=== PATIENT | male | born 1940 | race Caucasian/White ===

== ENCOUNTER 2020-10-11 00:20 | Emergency (ER) | payer MEDICARE, BC ==
[2020-10-11] MEDS ORDERED: Lidocaine 2% with EPINEPHrine 1:100,000 20 ML MDV INJECT ONE (00:56)
--- NOTE | 2020-10-11 00:56 | EDM.PDOC ---
ED HPI GENERAL MEDICAL PROBLEM - General Chief Complaint: Lower Extremity Injury/Pain Stated Complaint: Toe Lacerations Time Seen by Provider: 10/11/20 00:50 Source of Information: Reports: Patient, [place] Records History Limitations: Reports: No Limitations - History of Present Illness INITIAL COMMENTS - FREE TEXT/NARRATIVE: Pt fell and cut right 2nd and 3rd toes Sent her from [place] for evaluation Tetanus UTD Onset: Today, Sudden Duration: Minutes: Location: Reports: Lower Extremity, Right Context: Reports: Trauma - Related Data Allergies Allergy/AdvReac Type Severity Reaction Status Date / Time atorvastatin Allergy Body Aches Verified 12/03/17 08:13 lovastatin Allergy Body Aches Verified 12/03/17 08:13 Home Meds: Home Meds Acetaminophen 650 mg PO ASDIRECTED PRN 11/19/17 [History] Cholecalciferol (Vitamin D3) [Vitamin D3] 400 units PO DAILY 11/19/17 [History] Digoxin [Digox] 250 mcg PO DAILY 11/19/17 [History] Doxylamine Succinate [Unisom] 25 mg PO BEDTIME 11/19/17 [History] Fluticasone Propionate [Flonase] 1 - 2 spray NASBOTH ASDIRECTED 11/19/17 [History] Leuprolide [Lupron Depot 4-Month] 1 injection IM .[id number] 11/19/17 [History] Polyvinyl Alcohol [Artificial Tears] 1 drop EYEBOTH ASDIRECTED 11/19/17 [History] Sennosides/Docusate Sodium [Senna-Docusate Sodium] 1 tab PO DAILY 11/19/17 [History] Verapamil [Calan SR] 240 mg PO DAILY 11/19/17 [History] hydroCHLOROthiazide [Hydrochlorothiazide] 25 mg PO DAILY 11/19/17 [History] Bicalutamide [Casodex] 1 tab PO DAILY 11/24/17 [History] Past Medical History HEENT History: Reports: Cataract, Sinusitis, Other (See Below) Other HEENT History: 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 Cardiovascular History: Reports: Hypertension Respiratory History: Reports: None Gastrointestinal History: Reports: None Genitourinary History: Reports: Urinary Incontinence Musculoskeletal History: Reports: Arthritis, Back Pain, Chronic Neurological History: Reports: Vertigo Psychiatric History: Reports: Depression Endocrine/Metabolic History: Reports: None Hematologic History: Reports: None Immunologic History: Reports: None Oncologic (Cancer) History: Reports: Prostate, Other (See Below) Other Oncologic History: LIPOMA RESECTION - MELANOMA Dermatologic History: Reports: Psoriasis - Infectious Disease History Infectious Disease History: Reports: Chicken Pox, Measles, Mumps, Pertussis (Whooping Cough) - Past Surgical History Head Surgeries/Procedures: Reports: None HEENT Surgical History: Reports: Cataract Surgery Cardiovascular Surgical History: Reports: None Respiratory Surgical History: Reports: None GI Surgical History: Reports: None Other Female Surgeries/Procedures: prostate shots Male Surgical History: Reports: Prostate Biopsy, Other (See Below) Musculoskeletal Surgical History: Reports: Other (See Below) Other Musculoskeletal Surgeries/Procedures:: back surg Social & Family History - Family History Family Medical History: No Pertinent Family History - Caffeine Use Caffeine Use: Reports: Coffee Other Caffeine Use: 2 cups daily Review of Systems - Review of Systems Review Of Systems: See Below Skin: Reports: Other (Laceration to right 2nd and 3rd toes) ED EXAM, GENERAL - Physical Exam Exam: See Below Skin Exam: Wound/Incision, Other (Right 2nd and 3rd otes with laceration on flexor surface at PIP joint Bleeding controlled Unable to suture due to severe flexion deformity) Course - Re-Assessments/Exams Free Text/Narrative Re-Assessment/Exam: 10/11/20 00:52 Wound cleaned and dressed with surgicell and gauze per nursing D/W pt need to keep wound clean due to flexion deformity Departure - Departure Time of Disposition: 01:00 Disposition: DC/Tfer to [facility] 03 Clinical Impression: Toe laceration Qualifiers: Toe: unspecified toe Damage to nail status: without damage Foreign body presence: without foreign body Laterality: right - Discharge Information *PRESCRIPTION DRUG MONITORING PROGRAM REVIEWED*: Not Applicable *COPY OF PRESCRIPTION DRUG MONITORING REPORT IN PATIENT MIKEL: Not Applicable Referrals: Helen Reed PA [Primary Care Provider] - Additional Instructions: Keep wounds clean Follow up in clinic
== END 2020-10-11 02:00 | disposition home or self-care (01) ==
LOC: LL.ED 00:20
DX: S91.114A Laceration without foreign body of right lesser toe(s) without damage to nail, initial encounter (principal); I10 Essential (primary) hypertension; Z79.899 Other long term (current) drug therapy; Z88.8 Allergy status to other drugs, medicaments and biological substances; W26.8XXA Contact with other sharp object(s), not elsewhere classified, initial encounter
CPT/HCPCS: 99282

== ENCOUNTER 2021-04-07 13:04 | Emergency (ER) | payer MEDICARE, BC ==
[2021-04-07] MEDS ORDERED: Bacitracin/Neomycin/Polymyxin B Oint 0.9 GM U/D Packet ONE (13:32)
--- NOTE | 2021-04-07 13:46 | EDM.PDOC ---
ED HPI GENERAL MEDICAL PROBLEM - General Chief Complaint: Lower Extremity Injury/Pain Stated Complaint: Foot Laceration Time Seen by Provider: 04/07/21 13:19 Source of Information: Reports: Patient History Limitations: Reports: No Limitations - History of Present Illness INITIAL COMMENTS - FREE TEXT/NARRATIVE: Patient has drop foot and usually wears a brace. He was not wearing a brace last night when the foot got caught as patient was walking and he fell. He is not sure if he hyperextended the toes or exactly what happened. Small bump on right side of head. No LOC. Noted bleeding at base of right toes where toes meet the forefoot. Denies other acute injuries. [facility] bandaged that foot. Family wanted patient seen in ER today. Similar injury happened earlier this year. Unable to suture the wounds at that time due to location of the skin injury and patient's foot/toe edema. Healed well over time with topical antibiotic ointment and dressing changes. - Related Data Allergies Allergy/AdvReac Type Severity Reaction Status Date / Time atorvastatin Allergy Body Aches Verified 12/03/17 08:13 lovastatin Allergy Body Aches Verified 12/03/17 08:13 Home Meds: Home Meds Acetaminophen 650 mg PO ASDIRECTED PRN 11/19/17 [History] Cholecalciferol (Vitamin D3) [Vitamin D3] 400 units PO DAILY 11/19/17 [History] Digoxin [Digox] 250 mcg PO DAILY 11/19/17 [History] Doxylamine Succinate [Unisom] 25 mg PO BEDTIME 11/19/17 [History] Fluticasone Propionate [Flonase] 1 - 2 spray NASBOTH ASDIRECTED 11/19/17 [History] Leuprolide [Lupron Depot 4-Month] 1 injection IM .[id number] 11/19/17 [History] Polyvinyl Alcohol [Artificial Tears] 1 drop EYEBOTH ASDIRECTED 11/19/17 [History] Sennosides/Docusate Sodium [Senna-Docusate Sodium] 1 tab PO DAILY 11/19/17 [History] Verapamil [Calan SR] 240 mg PO DAILY 11/19/17 [History] hydroCHLOROthiazide [Hydrochlorothiazide] 25 mg PO DAILY 11/19/17 [History] Bicalutamide [Casodex] 1 tab PO DAILY 06/18/18 [History] Past Medical History HEENT History: Reports: Cataract, Sinusitis, Other (See Below) Other HEENT History: 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 Cardiovascular History: Reports: Hypertension Respiratory History: Reports: None Gastrointestinal History: Reports: None Genitourinary History: Reports: Urinary Incontinence Musculoskeletal History: Reports: Arthritis, Back Pain, Chronic Neurological History: Reports: Vertigo Psychiatric History: Reports: Depression Endocrine/Metabolic History: Reports: None Hematologic History: Reports: None Immunologic History: Reports: None Oncologic (Cancer) History: Reports: Prostate, Other (See Below) Other Oncologic History: LIPOMA RESECTION - MELANOMA Dermatologic History: Reports: Psoriasis - Infectious Disease History Infectious Disease History: Reports: Chicken Pox, Measles, Mumps, Pertussis (Whooping Cough) - Past Surgical History Head Surgeries/Procedures: Reports: None HEENT Surgical History: Reports: Cataract Surgery Cardiovascular Surgical History: Reports: None Respiratory Surgical History: Reports: None GI Surgical History: Reports: None Other Female Surgeries/Procedures: prostate shots Male Surgical History: Reports: Prostate Biopsy, Other (See Below) Musculoskeletal Surgical History: Reports: Other (See Below) Other Musculoskeletal Surgeries/Procedures:: back surg Social & Family History - Family History Family Medical History: No Pertinent Family History - Caffeine Use Caffeine Use: Reports: Coffee Other Caffeine Use: 2 cups daily Review of Systems - Review of Systems Review Of Systems: Comprehensive ROS is negative, except as noted in HPI. (No acute changes reported other than presenting complaint of lacerations bases of right toes) ED EXAM, GENERAL - Physical Exam Exam: See Below Exam Limited By: No Limitations General Appearance: Alert, No Apparent Distress, Obese Eye Exam: Bilateral Eye: EOMI, PERRL Ears: Hearing Grossly Normal Nose: No: Nasal Deformity, Nasal Swelling, Nasal Drainage Throat/Mouth: Normal Lips, Normal Voice, No Airway Compromise Head: Other (small bruise right buddhist) Neck: Supple, Non-Tender Respiratory/Chest: No Respiratory Distress, Lungs Clear, No Accessory Muscle Use Cardiovascular: Regular Rate, Rhythm GI/Abdominal: Soft (Male) Exam: Penile Lesions Rectal (Males) Exam: Deferred Back Exam: No: Muscle Spasm Extremities: Other (Has discoloration of lower legs/feet consistent with peripheral vascular disease. Mild-moderate edema of feet and toes bilat. Very small lacerations noted ventral aspect of right toes at their bases. No active bleeding. No redness/inceased warmth. ) Neurological: Alert, Oriented, Normal Cognition, Other (equal tone/strength bilat. ) Psychiatric: Normal Affect, Normal Mood Skin Exam: Warm, Other (lacerations right toes as noted above. ) Course - Vital Signs Last Recorded V/S: Last Vital Signs Temp 36.1 C 04/07/21 13:26 Pulse 54 L 04/07/21 13:26 Resp 16 04/07/21 13:26 BP 134/62 04/07/21 13:26 Pulse Ox 94 L 04/07/21 13:26 - Orders/Labs/Meds Meds: Medications Discontinued Medications Generic Name Dose Route Start Last Admin Trade Name Freq PRN Reason Stop Dose Admin Neomycin/Polymyxin/Bacitracin Confirm 04/07/21 13:32 Bacitracin/Neomycin/Polymyxin B Oint 0.9 Gm U/D Packet Administered 04/07/21 13:33 Dose 1 each .ROUTE .STK-MED ONE - Re-Assessments/Exams Free Text/Narrative Re-Assessment/Exam: 04/07/21 18:43 Suturing not really an option given patient's anatomy/edema/location of small lacerations. He did well before with good wound care. Suspect patient's skin is more friable due to his edema/age and peripheral vascular disease. Wound cleansed by nursing staff and bacitracin placed around lacerations/dressing applied over area. Wound care reviewed with patient and [facility]. Both are familiar with recommended plan due to the previous episode. To avoid shoes while area healing. Regular wound checks by PCP during correction rounds to provide routine assessment of how well area is healing. Departure - Departure Time of Disposition: 13:46 Disposition: DC/Tfer to SNF 03 Condition: Good Clinical Impression: Toe laceration Qualifiers: Encounter type: initial encounter Toe: unspecified toe Damage to nail status: without damage Foreign body presence: without foreign body Laterality: right Qualified Code(s): S91.119A - Laceration without foreign body of unspecified toe without damage to nail, initial encounter - Discharge Information *PRESCRIPTION DRUG MONITORING PROGRAM REVIEWED*: Not Applicable *COPY OF PRESCRIPTION DRUG MONITORING REPORT IN PATIENT MIKEL: Not Applicable Referrals: Helen Reed PA [Primary Care Provider] - Forms: ED Department Discharge Additional Instructions: Dressing change daily until toes are well-healed. OK to soak in Normal Saline foot bath for 10-15min to help cleanse area before applying Bacitracin near base of toes/nonstick dressing/gauze/wrap. Have patient checked routinely on correction rounds by primary provider to verify that things are healing well. Follow up as needed if any signs of infection are noted. To avoid wearing shoes while area is healing in order to decrease chances of wound infection. Should be wearing a clean slipper/slipper and continue using his brace in order to decrease chance of another fall. Sepsis Event Note (ED) - Evaluation Sepsis Screening Result: No Definite Risk - Focused Exam Vital Signs: Vital Signs Temp Pulse Resp BP Pulse Ox 04/07/21 13:26 36.1 C 54 L 16 134/62 94 L
== END 2021-04-07 14:20 ==
LOC: LL.ED 13:04
DX: S91.119A Laceration without foreign body of unspecified toe without damage to nail, initial encounter (principal); I10 Essential (primary) hypertension; Z88.8 Allergy status to other drugs, medicaments and biological substances; Z79.899 Other long term (current) drug therapy; W01.0XXA Fall on same level from slipping, tripping and stumbling without subsequent striking against object, initial encounter; Y93.01 Activity, walking, marching and hiking
CPT/HCPCS: 99282; 99283

== ENCOUNTER 2021-05-01 15:42 | Emergency (ER) | payer MEDICARE, BC ==
--- NOTE | 2021-05-01 17:53 | EDM.PDOC ---
ED HPI GENERAL MEDICAL PROBLEM - General Chief Complaint: Lower Extremity Injury/Pain Stated Complaint: Right leg/groin pain Time Seen by Provider: 05/01/21 16:48 - History of Present Illness INITIAL COMMENTS - FREE TEXT/NARRATIVE: Silas is an 81 y/o male who is brought to the ER with increased leg swelling and pain. He has been on Keflex for a right lower leg cellulitis and had albs done this AM by his PCP at the [facility]. Apparently he was having increased pain that shoots into his groin and therefore he was sent to the ER. He did have an US ordered for tomorrow. No fever. - Related Data Allergies Allergy/AdvReac Type Severity Reaction Status Date / Time atorvastatin Allergy Body Aches Verified 12/03/17 08:13 lovastatin Allergy Body Aches Verified 12/03/17 08:13 Home Meds: Home Meds Acetaminophen 650 mg PO ASDIRECTED PRN 11/19/17 [History] Cholecalciferol (Vitamin D3) [Vitamin D3] 400 units PO DAILY 11/19/17 [History] Digoxin [Digox] 250 mcg PO DAILY 11/19/17 [History] Doxylamine Succinate [Unisom] 25 mg PO BEDTIME 11/19/17 [History] Fluticasone Propionate [Flonase] 1 - 2 spray NASBOTH ASDIRECTED 11/19/17 [History] Leuprolide [Lupron Depot 4-Month] 1 injection IM .[id number] 11/19/17 [History] Polyvinyl Alcohol [Artificial Tears] 1 drop EYEBOTH ASDIRECTED 11/19/17 [History] Sennosides/Docusate Sodium [Senna-Docusate Sodium] 1 tab PO DAILY 11/19/17 [History] Verapamil [Calan SR] 240 mg PO DAILY 11/19/17 [History] hydroCHLOROthiazide [Hydrochlorothiazide] 25 mg PO DAILY 11/19/17 [History] Bicalutamide [Casodex] 1 tab PO DAILY 11/24/17 [History] Sulfamethoxazole/Trimethoprim [Bactrim Ds Tablet] 1 each PO BID #20 tablet 05/01/21 [Rx] Past Medical History HEENT History: Reports: Cataract, Sinusitis, Other (See Below) Other HEENT History: 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 Cardiovascular History: Reports: Hypertension Respiratory History: Reports: None Gastrointestinal History: Reports: None Genitourinary History: Reports: Urinary Incontinence Musculoskeletal History: Reports: Arthritis, Back Pain, Chronic Neurological History: Reports: Vertigo Psychiatric History: Reports: Depression Endocrine/Metabolic History: Reports: None Hematologic History: Reports: None Immunologic History: Reports: None Oncologic (Cancer) History: Reports: Prostate, Other (See Below) Other Oncologic History: LIPOMA RESECTION - MELANOMA Dermatologic History: Reports: Psoriasis - Infectious Disease History Infectious Disease History: Reports: Chicken Pox, Measles, Mumps, Pertussis (Whooping Cough) - Past Surgical History Head Surgeries/Procedures: Reports: None HEENT Surgical History: Reports: Cataract Surgery Cardiovascular Surgical History: Reports: None Respiratory Surgical History: Reports: None GI Surgical History: Reports: None Other Female Surgeries/Procedures: prostate shots Male Surgical History: Reports: Prostate Biopsy, Other (See Below) Musculoskeletal Surgical History: Reports: Other (See Below) Other Musculoskeletal Surgeries/Procedures:: back surg Social & Family History - Family History Family Medical History: No Pertinent Family History - Caffeine Use Caffeine Use: Reports: Coffee Other Caffeine Use: 2 cups daily Review of Systems - Review of Systems Review Of Systems: See Below Constitutional: Reports: No Symptoms Eyes: Reports: No Symptoms Ears: Reports: No Symptoms Nose: Reports: No Symptoms Mouth/Throat: Reports: No Symptoms Respiratory: Reports: No Symptoms Cardiovascular: Reports: No Symptoms GI/Abdominal: Reports: No Symptoms Genitourinary: Reports: No Symptoms Musculoskeletal: Reports: Leg Pain (right leg pain, swelling) Skin: Reports: No Symptoms Neurological: Reports: No Symptoms Psychiatric: Reports: Agitation ED EXAM, GENERAL - Physical Exam Exam: See Below General Appearance: Alert, WD/WN, No Apparent Distress (Elderly male, sitting in a wheelchair. Pleasant and able to answer questions.) Ears: Normal External Exam, Normal Canal, Hearing Grossly Normal, Normal TMs Nose: Normal Inspection Throat/Mouth: Normal Inspection, Normal Lips, Normal Oropharynx, Normal Voice Head: Atraumatic, Normocephalic Respiratory/Chest: No Respiratory Distress, Lungs Clear, Chest Non-Tender Cardiovascular: Normal Peripheral Pulses, Regular Rate, Rhythm Peripheral Pulses: 3+: Posterior Tibial (R), Dorsalis Pedis (R) GI/Abdominal: Soft (Male) Exam: Deferred Rectal (Males) Exam: Deferred Extremities: Normal Capillary Refill, Pedal Edema, Increased Warmth, Redness (; the foot and toes are alsoedeamtous and there is a pinpoint area on the foot oozing clear fluid) Psychiatric: Tearful Skin Exam: Warm, Dry, Intact, Normal Color Lymphatic: No Adenopathy Course - Vital Signs Text/Narrative:: The patient was seen by the [employer]. [facility] from this AM. CBC WBC=8.3, diff neg, CMP K=3.3, orders already reviewed and addressed by PCP. Venous doppler study ordered. 1809 US preliminary report negative. Will stop the Keflex and have him start a course of Bactrim DS to see if this will clear up the infection. Encourage him to elevate the leg as much as possible and will have nursing dress the open area as needed. He remained stable until departing the ER for the [facility]. - Orders/Labs/Meds Orders: Active Orders 24 hr Category Date Time Status Venous Doppler Lwr Ext Rt [US] Stat Exams 05/01/21 17:00 Ordered - Radiology Interpretation Free Text/Narrative:: Right Lower Ext Venous Doppler=no acute findings, some limited view (Preliminary report) Departure - Departure Time of Disposition: 18:10 Disposition: DC/Tfer to SNF 03 Condition: Good Clinical Impression: Cellulitis and abscess of right lower extremity - Discharge Information Prescriptions: Sulfamethoxazole/Trimethoprim [Bactrim Ds Tablet] 1 each PO BID #20 tablet Instructions: Cellulitis, Adult Referrals: Helen Reed PA [Primary Care Provider] - Forms: ED Department Discharge Additional Instructions: -Stop Keflex -Bactrim DS 1 po BID x 10 days #20 (Rx) -Dress wound on leg as needed -Elevate the leg as much as possible. -Apply moist heat as needed -Follow up with PCP for further care or return to the ER as needed - Problem List & Annotations (1) Cellulitis and abscess of right lower extremity SNOMED Code(s): 254535087 Code(s): L03.115 - CELLULITIS OF RIGHT LOWER LIMB; L02.415 - CUTANEOUS ABSCESS OF RIGHT LOWER LIMB Status: Acute Current Visit: Yes Annotation/Comment:: Venous Doppler Study negative. Will have him stop the Keflex abnd start of course of Bactrim DS. - Problem List Review Problem List Initiated/Reviewed/Updated: Yes - My Orders Last 24 Hours: My Active Orders 05/01/21 17:00 Venous Doppler Lwr Ext Rt [US] Stat - Assessment/Plan Last 24 Hours: My Active Orders 05/01/21 17:00 Venous Doppler Lwr Ext Rt [US] Stat Plan: As above
== END 2021-05-01 18:50 ==
LOC: LL.ED 15:42
DX: L03.115 Cellulitis of right lower limb (principal); L02.415 Cutaneous abscess of right lower limb; I10 Essential (primary) hypertension; Z88.8 Allergy status to other drugs, medicaments and biological substances
CPT/HCPCS: 93971; 99283-25

== ENCOUNTER 2021-05-03 11:52 | Emergency (ER) | payer OTHER, MEDICARE, BC ==
[2021-05-03] MEDS ORDERED: Sodium Chloride 0.9% 10 ML Syringe FLUSH PRN (12:28)
--- NOTE | 2021-05-03 12:52 | EDM.PDOC ---
ED HPI GENERAL MEDICAL PROBLEM - General Chief Complaint: Behavioral/Psych Stated Complaint: HALLUCINATIONS Time Seen by Provider: 05/03/21 12:15 Source of Information: Reports: Patient, [facility] Records - History of Present Illness INITIAL COMMENTS - FREE TEXT/NARRATIVE: Silas is an 81 y/o who is seen in the ER for a couple episodes of visual hallucinations this AM. He lives at the [facility] and is currently being treated for a right lower leg cellulitis. He was initially on Keflex, but was then seen here in the ER on Friday night and antibiotic were changed to Bactrim DS. He also had a venous doppler study at that ER visit that ruled out a DVT. He has apparently been doing fine, then this AM he reported the nurse that he saw some "cats fighting up on the cupboard". He has not done before today from the sounds. He was otherwise doing fine. He then also told DEVELOPMENT DIRECTOR that "that thing looked like an appliance" and he was referring to the yxis and states that he did see a couple things when he has closed his eyes for a short time then opens them, but it magana snot seem to be continuous. No fever. Not much of an appetite, he does report some lower abdominal discomfort this AM. - Related Data Allergies Allergy/AdvReac Type Severity Reaction Status Date / Time atorvastatin Allergy Body Aches Verified 12/03/17 08:13 lovastatin Allergy Body Aches Verified 12/03/17 08:13 Home Meds: Home Meds Acetaminophen 650 mg PO ASDIRECTED PRN 11/19/17 [History] Cholecalciferol (Vitamin D3) [Vitamin D3] 400 units PO DAILY 11/19/17 [History] Digoxin [Digox] 250 mcg PO DAILY 11/19/17 [History] Doxylamine Succinate [Unisom] 25 mg PO BEDTIME 11/19/17 [History] Fluticasone Propionate [Flonase] 1 - 2 spray NASBOTH ASDIRECTED 11/19/17 [History] Leuprolide [Lupron Depot 4-Month] 1 injection IM .[id number] 11/19/17 [History] Polyvinyl Alcohol [Artificial Tears] 1 drop EYEBOTH ASDIRECTED 11/19/17 [History] Sennosides/Docusate Sodium [Senna-Docusate Sodium] 1 tab PO DAILY 11/19/17 [History] Verapamil [Calan SR] 240 mg PO DAILY 11/19/17 [History] hydroCHLOROthiazide [Hydrochlorothiazide] 25 mg PO DAILY 11/19/17 [History] Bicalutamide [Casodex] 1 tab PO DAILY 11/24/17 [History] Sulfamethoxazole/Trimethoprim [Bactrim Ds Tablet] 1 each PO BID #20 tablet 05/01/21 [Rx] Past Medical History HEENT History: Reports: Cataract, Sinusitis, Other (See Below) Other HEENT History: 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 Cardiovascular History: Reports: Hypertension Respiratory History: Reports: None Gastrointestinal History: Reports: None Genitourinary History: Reports: Urinary Incontinence Musculoskeletal History: Reports: Arthritis, Back Pain, Chronic Neurological History: Reports: Vertigo Psychiatric History: Reports: Depression Endocrine/Metabolic History: Reports: None Hematologic History: Reports: None Immunologic History: Reports: None Oncologic (Cancer) History: Reports: Prostate, Other (See Below) Other Oncologic History: LIPOMA RESECTION - MELANOMA Dermatologic History: Reports: Cellulitis, Psoriasis - Infectious Disease History Infectious Disease History: Reports: Chicken Pox, Measles, Mumps, Pertussis (Whooping Cough) - Past Surgical History Head Surgeries/Procedures: Reports: None HEENT Surgical History: Reports: Cataract Surgery Cardiovascular Surgical History: Reports: None Respiratory Surgical History: Reports: None GI Surgical History: Reports: None Male Surgical History: Reports: Prostate Biopsy, Other (See Below) Musculoskeletal Surgical History: Reports: Other (See Below) Other Musculoskeletal Surgeries/Procedures:: back surg Social & Family History - Family History Family Medical History: No Pertinent Family History - Tobacco Use Tobacco Use Status *Q: Unknown Ever Used Tobacco - Caffeine Use Caffeine Use: Reports: Coffee Other Caffeine Use: 2 cups daily - Recreational Drug Use Recreational Drug Use: No Review of Systems - Review of Systems Review Of Systems: See Below Constitutional: Reports: No Symptoms Eyes: Reports: No Symptoms Ears: Reports: No Symptoms Nose: Reports: No Symptoms Mouth/Throat: Reports: No Symptoms Respiratory: Reports: No Symptoms Cardiovascular: Reports: Lightheadedness GI/Abdominal: Reports: Decreased Appetite Genitourinary: Reports: No Symptoms Musculoskeletal: Reports: No Symptoms Skin: Reports: No Symptoms Neurological: Reports: No Symptoms Psychiatric: Reports: Hallucinations (Visual) ED EXAM, GENERAL - Physical Exam Exam: See Below General Appearance: Alert, WD/WN, No Apparent Distress (Obese elderly male sitting in whjeel chair at bedside, he is pleasant and able to cooperate and answer questions.) Eye Exam: Bilateral Eye: PERRL Ears: Normal External Exam, Normal Canal, Hearing Grossly Normal, Normal TMs Nose: Normal Inspection, Normal Mucosa Throat/Mouth: Normal Inspection, Normal Lips, Normal Voice Head: Atraumatic, Normocephalic Neck: Normal Inspection, Supple Respiratory/Chest: No Respiratory Distress, Lungs Clear, Chest Non-Tender Cardiovascular: Normal Peripheral Pulses, Regular Rate, Rhythm GI/Abdominal: Normal Bowel Sounds, Soft (Male) Exam: Deferred Rectal (Males) Exam: Deferred Extremities: Other (Right lower leg is much less reddened and less edematous today than it was a couple days ago, still some serous drainage from the open area on the anteriro aspect, but overall much improved) Neurological: Alert, Oriented, CN II-XII Intact, Normal Cognition, Normal Gait, No Motor/Sensory Deficits Psychiatric: Normal Affect, Normal Mood Skin Exam: Warm, Dry, Intact, Normal Color, No Rash #1 Interpretation EKG Date: 05/03/21 Time: 13:09 Rhythm: NSR Rate (Beats/Min): 69 [place]: Normal P-Wave: Present QRS: Normal ST-T: Normal QT: Normal EKG Interpretation Comments: Normal Sinus Rhythm Course - Vital Signs Text/Narrative:: 1215 The patient was seen by the DEVELOPMENT DIRECTOR. Labs, EKG, and CXR ordered to excluded potential causes of hallucinations or worsening of of infection. 1330 Labs, EKG, and CXR negative. Noted in UpToDate that Bactrim can cause hallucinations in some patients. Given that his vitals are normal and his cellulitis is improving, would advise he continue on this course of medications and monitor the sx. Can have his PCP reevaluate. Written instructions were given and he left the ER in stable condition. Last Recorded V/S: Last Vital Signs Temp 36.6 C 05/03/21 11:53 Pulse 79 05/03/21 11:53 Resp 16 05/03/21 11:53 BP 156/79 H 05/03/21 11:53 Pulse Ox 94 L 05/03/21 11:53 - Orders/Labs/Meds Orders: Active Orders 24 hr Category Date Time Status EKG Documentation Completion [RC] ASDIRECTED Care 05/03/21 12:29 Active EKG Documentation Completion [RC] STAT Care 05/03/21 12:28 Active Chest 1V Frontal [CR] Stat Exams 05/03/21 12:28 Ordered CULTURE BLOOD [BC] Stat Lab 05/03/21 12:29 Ordered CULTURE BLOOD [BC] Stat Lab 05/03/21 12:39 Received DRUG SCREEN, URINE [URCHEM] Stat Lab 05/03/21 12:28 Ordered UA RFX YANDEL AND CULT IF INDIC [URIN] Stat Lab 05/03/21 12:28 Ordered Sodium Chloride 0.9% [Saline Flush] Med 05/03/21 12:28 Active 10 ml FLUSH ASDIRECTED PRN Blood Culture x2 Reflex Set [OM.PC] Stat Oth 05/03/21 12:28 Ordered Saline Lock Insert [OM.PC] Stat Oth 05/03/21 12:28 Ordered EKG 12 Lead [EK] Stat Ther 05/03/21 12:28 Ordered Medication Orders Sodium Chloride (Sodium Chloride 0.9% 10 Ml Syringe) 10 ml FLUSH ASDIRECTED PRN PRN Reason: Keep Vein Open Labs: Laboratory Tests 05/03/21 05/03/21 05/03/21 Range/Units 12:39 12:39 12:39 WBC 7.8 (4.0-10.2) K/uL RBC 4.66 (4.33-5.41) M/uL Hgb 13.3 (13.1-16.8) g/dL Hct 40.8 (39.0-49.0) % MCV 87.6 (84.0-98.0) fL MCH 28.5 (28.2-33.3) pg MCHC 32.6 (31.7-36.0) g/dL RDW 14.1 (11.2-14.1) % Plt Count 203 (150-350) K/uL Neut % (Auto) 71.5 (45.0-80.0) % Lymph % (Auto) 13.7 (10.0-50.0) % [place] % (Auto) 11.7 (2.0-14.0) % Eos % (Auto) 2.8 (0.0-5.0) % Baso % (Auto) 0.3 (0.0-2.0) % Neut # (Auto) 5.60 (1.40-7.00) K/uL Lymph # (Auto) 1.07 (0.50-3.50) K/uL [place] # (Auto) 0.92 (0.00-1.00) K/uL Eos # (Auto) 0.22 (0.00-0.50) K/uL Baso # (Auto) 0.02 (0.00-0.20) K/uL PT 10.6 (9.5-12.0) SEC INR 1.1 Sodium 141 (136-145) mmol/L Potassium 3.9 (3.5-5.1) mmol/L Chloride 102 (98-107) mmol/L Carbon Dioxide 28.4 (21.0-32.0) mmol/L Anion Gap 10.6 (7-15) meq/L BUN 19 H (7-18) mg/dL Creatinine 1.06 (0.51-1.17) mg/dL Est Cr Clr Drug Dosing TNP Estimated GFR (MDRD) > 60 mL/min Glucose 92 (70-99) mg/dL Lactic Acid (0.4-2.0) mmol/L Calcium 9.7 (8.5-10.1) mg/dL Magnesium 2.0 (1.8-2.4) mg/dL Total Bilirubin 0.7 (0.2-1.0) mg/dL AST 25 (15-37) U/L ALT 24 (12-78) U/L Alkaline Phosphatase 113 (46-116) IU/L Troponin I High Sens 5 (<=76) ng/L C-Reactive Protein 3.7 H (<=0.9) mg/dL NT-Pro-B Natriuret Pep 151 H (0-125) pg/mL Total Protein 7.6 (6.4-8.2) g/dL Albumin 3.7 (3.4-5.0) g/dL 05/03/21 Range/Units 12:39 WBC (4.0-10.2) K/uL RBC (4.33-5.41) M/uL Hgb (13.1-16.8) g/dL Hct (39.0-49.0) % MCV (84.0-98.0) fL MCH (28.2-33.3) pg MCHC (31.7-36.0) g/dL RDW (11.2-14.1) % Plt Count (150-350) K/uL Neut % (Auto) (45.0-80.0) % Lymph % (Auto) (10.0-50.0) % [place] % (Auto) (2.0-14.0) % Eos % (Auto) (0.0-5.0) % Baso % (Auto) (0.0-2.0) % Neut # (Auto) (1.40-7.00) K/uL Lymph # (Auto) (0.50-3.50) K/uL [place] # (Auto) (0.00-1.00) K/uL Eos # (Auto) (0.00-0.50) K/uL Baso # (Auto) (0.00-0.20) K/uL PT (9.5-12.0) SEC INR Sodium (136-145) mmol/L Potassium (3.5-5.1) mmol/L Chloride (98-107) mmol/L Carbon Dioxide (21.0-32.0) mmol/L Anion Gap (7-15) meq/L BUN (7-18) mg/dL Creatinine (0.51-1.17) mg/dL Est Cr Clr Drug Dosing Estimated GFR (MDRD) mL/min Glucose (70-99) mg/dL Lactic Acid 1.0 (0.4-2.0) mmol/L Calcium (8.5-10.1) mg/dL Magnesium (1.8-2.4) mg/dL Total Bilirubin (0.2-1.0) mg/dL AST (15-37) U/L ALT (12-78) U/L Alkaline Phosphatase (46-116) IU/L Troponin I High Sens (<=76) ng/L C-Reactive Protein (<=0.9) mg/dL NT-Pro-B Natriuret Pep (0-125) pg/mL Total Protein (6.4-8.2) g/dL Albumin (3.4-5.0) g/dL Meds: Medications Generic Name Dose Route Start Last Admin Trade Name Freq PRN Reason Stop Dose Admin Sodium Chloride 10 ml 05/03/21 12:28 Sodium Chloride 0.9% 10 Ml Syringe FLUSH ASDIRECTED PRN Keep Vein Open - Radiology Interpretation Free Text/Narrative:: XR Chest 1V=negative (See final report) Departure - Departure Time of Disposition: 13:45 Disposition: DC/Tfer to SNF 03 Condition: Good Clinical Impression: Cellulitis and abscess of right lower extremity, Hallucinations - Discharge Information Referrals: PCP,Unknown [Primary Care Provider] - Forms: ED Department Discharge Additional Instructions: -Continue the Bactrim course -Monitor hallucinations. Note in UpToDate that Hallucinations can occur with Bactrim use. Since leg is improving and labs negative, will have pt finish the course. -Foam dressing/Humberto as needed to open areas on right lower leg. -FU with PCP for recheck Sepsis Event Note (ED) - Evaluation Sepsis Screening Result: No Definite Risk - Focused Exam Vital Signs: Vital Signs Temp Pulse Resp BP Pulse Ox 05/03/21 11:53 36.6 C 79 16 156/79 H 94 L - Problem List & Annotations (1) Cellulitis and abscess of right lower extremity SNOMED Code(s): 758207071 Code(s): L03.115 - CELLULITIS OF RIGHT LOWER LIMB; L02.415 - CUTANEOUS ABSCESS OF RIGHT LOWER LIMB Status: Acute Current Visit: Yes Annotation/Comment:: Overall improving. Labs negative. Continue Bactrim. (2) Hallucinations SNOMED Code(s): 6127374 Code(s): R44.3 - HALLUCINATIONS, UNSPECIFIED Status: Acute Current Visit: Yes Annotation/Comment:: Neuro exam normal, Labs neg. Attribute the visiual distubances to the Bactrim use at this time. Monitor and will reassess as needed. - Problem List Review Problem List Initiated/Reviewed/Updated: Yes - My Orders Last 24 Hours: My Active Orders 05/03/21 12:28 EKG Documentation Completion [RC] STAT Chest 1V Frontal [CR] Stat DRUG SCREEN, URINE [URCHEM] Stat UA RFX YANDEL AND CULT IF INDIC [URIN] Stat Sodium Chloride 0.9% [Saline Flush] 10 ml FLUSH ASDIRECTED PRN Blood Culture x2 Reflex Set [OM.PC] Stat Saline Lock Insert [OM.PC] Stat EKG 12 Lead [EK] Stat 05/03/21 12:29 EKG Documentation Completion [RC] ASDIRECTED CULTURE BLOOD [BC] Stat 05/03/21 12:39 CULTURE BLOOD [BC] Stat - Assessment/Plan Last 24 Hours: My Active Orders 05/03/21 12:28 EKG Documentation Completion [RC] STAT Chest 1V Frontal [CR] Stat DRUG SCREEN, URINE [URCHEM] Stat UA RFX YANDEL AND CULT IF INDIC [URIN] Stat Sodium Chloride 0.9% [Saline Flush] 10 ml FLUSH ASDIRECTED PRN Blood Culture x2 Reflex Set [OM.PC] Stat Saline Lock Insert [OM.PC] Stat EKG 12 Lead [EK] Stat 05/03/21 12:29 EKG Documentation Completion [RC] ASDIRECTED CULTURE BLOOD [BC] Stat 05/03/21 12:39 CULTURE BLOOD [BC] Stat Plan: See above
[2021-05-03 13:31] LABS: ANION GAP 10.6 meq/L (7-15); CHLORIDE,CL 102 mmol/L (98-107); SODIUM,NA 141 mmol/L (136-145)
== END 2021-05-03 14:15 ==
LOC: LL.ED 11:52
DX: R44.1 Visual hallucinations (principal); L03.115 Cellulitis of right lower limb; L02.415 Cutaneous abscess of right lower limb; I10 Essential (primary) hypertension; Z88.8 Allergy status to other drugs, medicaments and biological substances
CPT/HCPCS: 36415; 71045; 80053; 83605; 83735; 83880; 84484; 85025; 85610; 86140; 87040; 93005; 99285-25